=== PATIENT | male | born 1975 | race Caucasian/White ===

== ENCOUNTER 2019-05-05 22:27 | Emergency (ER) | payer MEDICAID ==
[2019-05-06] MEDS: DEXAMETHASONE 10 MG/ML 1 ML INJ IM (00:43)
[2019-05-06] MEDS: KETOROLAC 30 MG INJ IM (00:43)
== END 2019-05-06 02:05 | disposition home or self-care (01) ==
LOC: FTE 05-06 02:05
DX: M54.41 Lumbago with sciatica, right side (principal); F17.210 Nicotine dependence, cigarettes, uncomplicated
CPT/HCPCS: 96372; 99284-25